=== PATIENT | male | born 1970 | race Caucasian/White ===

== ENCOUNTER 2022-02-05 00:14 | Emergency (ER) | payer SELFPAY ==
[2022-02-05 00:13] VITALS: BP 170/110; PULSE 84; RESP 18; TEMP 36.9; O2SAT 98; BMI 30.3
--- NOTE | 2022-02-05 00:20 | XR_ITS ---
PROCEDURE INFORMATION: Exam: XR Chest Exam date and time: 02/05/2022 12:35 AM Age: 51 years old Clinical indication: Other: Elevated blood pressure; Additional info: High BP TECHNIQUE: Imaging protocol: Radiologic exam of the chest. Views: 2 views. COMPARISON: No relevant prior studies available. FINDINGS: Lungs: There is a 10 mm nodule left lower lobe. The remainder of the lungs are clear. Pleural spaces: Unremarkable. No pleural effusion. No pneumothorax. Heart/Mediastinum: Unremarkable. No cardiomegaly. Bones/joints: Unremarkable. IMPRESSION: 1. No acute finding. 2. 10 mm nodule left lower lobe.
--- NOTE | 2022-02-05 00:21 | ECG_ITS ---
APPROVED REPORT Exam: Resting ECG HR:74 bpm ECG Measurements Heart Rate 74 AXES NE 179 P 48 QRSd 93 QRS 42 QT 364 T 38 QTc 391 Conclusion SINUS RHYTHM NORMAL ECG UNCONFIRMED REPORT Electronically signed by : Josue White MD 02/06/2022 21:28:45
[2022-02-05 00:27] VITALS: BP 168/116; PULSE 77; O2SAT 95
[2022-02-05 00:27] LABS: Basophils # 0.1 K/mm3 (0-0.2); Basophils % 1.2 % (0.1-2.0); Eosinophils # 0.4 K/mm3 (0.0-0.4); Eosinophils % 4.2 % (0.1-12.0); Hematocrit 44.2 % (42.0-52.0); Hemoglobin 14.2 g/dL (14.1-18.0); Lymphocytes # 3.7 K/mm3 (0.7-4.5); Mean Corpuscular HGB Conc 32.2 g/dL (31.8-35.4); Mean Corpuscular Hemoglobin 28.8 pg (27.0-31.2); Mean Corpuscular Volume 89.5 fl (80-94); Mean Platelet Volume 9.2 fl (7.4-10.4); Monocytes # 0.4 K/mm3 (0.1-1.0); Monocytes % 4.9 % (1.7-9.3); Neutrophils # 4.2 K/mm3 (1.8-7.8); Neutrophils % 47.7 % (37.0-80.0); Platelet Count 174 K/mm3 (142-424); Red Blood Count 4.94 M/mm3 (4.60-6.20); White Blood Count 8.8 K/mm3 (4.8-10.8)
[2022-02-05 00:31] LABS: Alanine Aminotransferase 95 U/L (12-78); Albumin Level 4.3 g/dl (3.5-5.0); Albumin/Globulin Ratio 1.5 (1.1-1.8); Alkaline Phosphatase 204 U/L (38-126); Anion Gap 12.9 mEq/L (5-15); Aspartate Amino Transferase 47 U/L (17-59); Bilirubin,Total 0.4 mg/dl (0.2-1.3); Blood Urea Nitrogen 17 mg/dl (9-20); Calcium 9.5 mg/dl (8.4-10.2); Carbon Dioxide 25 mmol/L (22.0-30.0); Chloride 101 mmol/L (98-107); Creatinine Clearance Estimated 72 mL/min (50-200); Estimated Glomerular Filt Rate 78 ml/min (>60); GFR (African American) 95 ML/MIN (>60); Globulin 2.9 g/dL (1.3-3.2); Potassium 3.9 mmoL/L (3.5-5.1); Sodium 135 mmol/L (136-145); Total Protein,Serum 7.2 g/dl (6.3-8.2)
[2022-02-05 00:32] LABS: Coronavirus 19, PCR Not Detected (NotDetected); Influenza A, PCR Not Detected (NotDetected); Influenza B, PCR Not Detected (NotDetected)
[2022-02-05 00:36] LABS: C-Reactive Protein 7.3 mg/L (0-4); Glucose 427 mg/dl (74-100)
--- NOTE | 2022-02-05 00:41 | CT_ITS ---
PROCEDURE INFORMATION: Exam: CT Head Without Contrast Exam date and time: 02/05/2022 12:42 AM Age: 51 years old Clinical indication: Pain; Headache not specified; Additional info: AVILA elevated BP TECHNIQUE: Imaging protocol: Computed tomography of the head without contrast. Radiation optimization: All CT scans at this facility use at least one of these dose optimization techniques: automated exposure control; mA and/or kV adjustment per patient size (includes targeted exams where dose is matched to clinical indication); or iterative reconstruction. COMPARISON: No relevant prior studies available. FINDINGS: Brain: Normal. No hemorrhage. Unremarkable white matter. No mass effect. Cerebral ventricles: No ventriculomegaly. Ventricles are asymmetric, left larger than right, a finding within normal limits. Paranasal sinuses: There is opacification of the right frontal sinus with hyperostosis of the right frontal sinus dorman. There is mucosal thickening of the left sphenoid sinus. Mastoid air cells: Visualized mastoid air cells are well aerated. Bones/joints: Unremarkable. No acute fracture. Soft tissues: Unremarkable. IMPRESSION: 1. No acute intracranial abnormality. 2. Chronic sinusitis.
[2022-02-05 00:50] LABS: Procalcitonin 0.134 ng/mL (0.0-2.0)
[2022-02-05 00:53] VITALS: BP 171/119; PULSE 86; O2SAT 96
[2022-02-05 00:54] LABS: Troponin I < 0.01 ng/ml (0.00-0.034)
--- NOTE | 2022-02-05 00:56 | PC.NURSE ---
Rounded on patient. Pt is resting in bed with daughter at bedside. PT given a 0.1mg clonidine po per md order for hypertension. Pt states that he wasnt aware that he has any issues with his blood glucose levels but has been seen at [place] for his hypertension several times but has not had changes made to his treatment by his MD. Pt was given a warm blanket and a remote control for his television. Advised patient that we're continuing to wait for the results of his testing. Call silva provided to patient.
[2022-02-05 00:57] VITALS: BP 160/112; PULSE 82; O2SAT 95
[2022-02-05 00:59] LABS: Erythrocyte Sedimentation Rate 14 mm/hr (0-20)
[2022-02-05 01:00] LABS: Acetone, Serum (Rapid) None Detected (None Detect)
--- NOTE | 2022-02-05 01:11 | HMH.EDWEAK ---
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 status Diabetes mellitus complication status: with other specified complication Qualified Code(s): E11.69 - Type 2 diabetes mellitus with other specified complication Disposition: Home, Self-Care Condition on Discharge: Good Instructions: Treatments for High Blood Pressure: More Than Just Taking a Pill Additional Instructions: call pcp this am Prescriptions: Metformin HCl [Metformin HCl ER] 500 mg PO BID #60 tab Transmission Status: Pending to [facility] Referrals: Provider,Referral, [Primary Care Provider] - - Critical Care Critical Care Time: No Attestation: On 02/05/22, the high probability of a clinically significant, sudden or life threatening deterioration of the following system(s) required my full and direct attention, intervention and personal management. The time I documented below is in addition to time spent performing reported procedures but includes the following listed in this critical care notation. Medical Decision Making - Medical Records Medical records reviewed: Yes: I reviewed the patient's medical records. - Anthony Inquiry Pt receiving controlled substance: No Vital Signs: 02/05/22 00:13 02/05/22 00:27 02/05/22 00:53 Temperature 98.5 F Temperature Source Oral Pulse Rate 77 86 Pulse Rate [Right] 84 Respiratory Rate 18 Blood Pressure 168/116 H 171/119 H Blood Pressure [Right Arm] 170/110 H Blood Pressure Mean [Right Arm] 130 02 Sat by Pulse Oximetry 98 95 96 Oxygen Delivery Method Room Air Room Air 02/05/22 00:57 Temperature Temperature Source Pulse Rate 82 Pulse Rate [Right] Respiratory Rate Blood Pressure 160/112 H Blood Pressure [Right Arm] Blood Pressure Mean [Right Arm] 02 Sat by Pulse Oximetry 95 Oxygen Delivery Method Room Air - Lab Data Lab results reviewed: Yes: I reviewed the patient's lab results. Lab Results 02/05/22 00:15: WBC 8.8, RBC 4.94, Hgb 14.2, Hct 44.2, MCV 89.5, MCH 28.8, MCHC 32.2, RDW 14.0, Plt Count 174, MPV 9.2, Neut % (Auto) 47.7, Lymph % (Auto) 42.0, [place] % (Auto) 4.9, Eos % (Auto) 4.2, Baso % (Auto) 1.2, Neut # (Auto) 4.2, Lymph # (Auto) 3.7, [place] # (Auto) 0.4, Eos # (Auto) 0.4, Baso # (Auto) 0.1, ESR 14 02/05/22 00:15: Sodium 135 L, Potassium 3.9, Chloride 101, Carbon Dioxide 25, Anion Gap 12.9, BUN 17, Creatinine 1.00, Estimated Creat Clear 72, Estimated GFR 78, Est GFR ( Amer) 95, Glucose 427 H*, Calcium 9.5, Total Bilirubin 0.4, AST 47, ALT 95 H, Alkaline Phosphatase 204 H, Troponin I < 0.01, C-Reactive Protein 7.3 H, Total Protein 7.2, Albumin 4.3, Globulin 2.9, Albumin/Globulin Ratio 1.5, Procalcitonin 0.134 02/05/22 00:15: Hemoglobin A1c 8.7 H 02/05/22 00:15: Acetone Level None detected 02/05/22 00:23: SARS-CoV-2 (PCR) Not detected, Influenza A Untype (PCR) Not detected, Influenza Type B (PCR) Not detected 02/05/22 01:27: Urine Color Yellow, Urine Appearance Clear, Urine pH 6.0, Ur Specific [place] 1.015, Urine Protein Negative, Urine Glucose (UA) 3+, Urine Ketones Negative, Urine Blood Negative, Urine Nitrate Negative, Urine Bilirubin Negative, Urine Urobilinogen 0.2, Ur Leukocyte Esterase Negative, Ur Squamous Epith Cells Occasional Result diagrams: 02/05/22 00:15 02/05/22 00:15 Orders (Tests/Meds): ED MEDICATIONS Discontinued Medications Generic Name Dose Route Start Last Admin Trade Name Ariana PRN Reason Stop Dose Admin Clonidine HCl 0.1 mg 02/05/22 00:42 02/05/22 00:51 Clonidine 0.1mg Tablet PO 02/05/22 00:43 0.1 mg ONCE ONE Administration Insulin Human Regular 5 unit 02/05/22 01:19 02/05/22 01:22 Insulin Human Regular 100 Units/Ml 10ml Vial IVP 02/05/22 01:20 5 unit ONCE ONE Administration ORDERS Category Date Time Status Troponin I Q3H Lab 02/05/22 03:
--- NOTE | 2022-02-05 01:27 | PC.NURSE ---
Educated patient on diabetes and preventative measures that he can take to reduce his blood glucose levels, such as diet and exercise and following a low carb diet at home. Explained to patient that we continue to wait on his results but if discharged he should follow up with his pcp for changes needed for his blood glucose. Patient verbalized understanding .He states that he stays active with his work, but feels like there's room for improvement on his diet.
[2022-02-05 01:40] LABS: Hemoglobin A1C 8.7 % (4.0-6.0)
[2022-02-05 01:42] LABS: Microscopic, Urine URINE MICROSCOPIC (MICROSCOPIC)
[2022-02-05 01:43] LABS: Appearance,Urine CLEAR (Clear); Bilirubin,Urine Negative (Negative); Blood, Urine Negative (Negative); Color,Urine YELLOW (Yellow); Glucose,Urine (UA) 3+ (Negative); Ketones,Urine Negative (Negative); Leukocyte Esterase,Urine Negative (Negative); Nitrate,Urine Negative (Negative); Protein,Urine Negative (Negative); Specific Gravity, Urine 1.015 (1.005-1.030); Urobilinogen,Urine 0.2 EU/dl (0.2)
[2022-02-05 01:46] LABS: Squamous Epithelial Cell,Urine Occasional #/hpf (0-5)
[2022-02-05 01:54] VITALS: BP 149/103; PULSE 91; RESP 18; TEMP 36.6; O2SAT 95
== END 2022-02-05 02:02 | disposition home or self-care (01) ==
PROVIDERS: Emergency Provider Emergency Medicine
DX: E11.69 Type 2 diabetes mellitus with other specified complication (principal); R03.0 Elevated blood-pressure reading, without diagnosis of hypertension; R53.1 Weakness; R51.9 Headache, unspecified; Z79.84 Long term (current) use of oral hypoglycemic drugs; Z20.822 Contact with and (suspected) exposure to COVID-19
CPT/HCPCS: 70450; 71046; 80053; 81001; 82009; 83036; 84145; 84484; 85025; 85651; 86140; 93005; 96374; 99285; C9803; U0003; U0005

== ENCOUNTER 2022-10-10 19:59 | Emergency (ER) | payer SELFPAY ==
[2022-10-10 20:33] VITALS: BP 152/93; PULSE 83; RESP 18; TEMP 36.7; O2SAT 97; BMI 29.4
--- NOTE | 2022-10-10 20:36 | XR_ITS ---
PROCEDURE INFORMATION: Exam: XR Right Hand Exam date and time: 10/10/2022 8:34 PM Age: 52 years old Clinical indication: Right; Patient HX: Injured hand working on car, pain radiates to elbow; Additional info: Injury TECHNIQUE: Imaging protocol: Radiologic exam of the right hand. Views: 3 or more views. Total images: 3 COMPARISON: No relevant prior studies available. FINDINGS: Bones/joints: No acute fracture or joint dislocation. Joint spaces are well maintained and age-appropriate. No significant degenerative arthropathy. No concerning bone lesions or calcifications. Soft tissues: Unremarkable soft tissues. IMPRESSION: Negative right hand.
--- NOTE | 2022-10-10 20:36 | XR_ITS ---
PROCEDURE INFORMATION: Exam: XR Right Elbow Exam date and time: 10/10/2022 8:38 PM Age: 52 years old Clinical indication: Right; Patient HX: Injured hand working on car, pain radiates to elbow; Additional info: Injury TECHNIQUE: Imaging protocol: Radiologic exam of the right elbow. Views: 1 or 2 views. Total images: 2 COMPARISON: CR XR WRIST RT MIN 3V 10/10/2022 8:36 PM FINDINGS: Bones/joints: No acute fracture, joint dislocation, or joint effusion. Joint spaces are well maintained. No degenerative arthropathy. No concerning bone lesions. Soft tissues: Unremarkable soft tissues. IMPRESSION: Negative right elbow.
--- NOTE | 2022-10-10 20:36 | XR_ITS ---
PROCEDURE INFORMATION: Exam: XR Right Forearm Exam date and time: 10/10/2022 8:38 PM Age: 52 years old Clinical indication: Lower or forearm; Right; Patient HX: Injured hand working on car, pain radiates to elbow; Additional info: Injury TECHNIQUE: Imaging protocol: Radiologic exam of the right forearm. Views: 2 views. Total images: 2 COMPARISON: CR XR WRIST RT MIN 3V 10/10/2022 8:36 PM FINDINGS: Bones/joints: No acute fracture or joint dislocation. Proximal and distal articulations are maintained. Corticated ossicle tip of the ulnar styloid process. No concerning bone lesions. Soft tissues: Unremarkable soft tissues. IMPRESSION: Negative right forearm.
--- NOTE | 2022-10-10 20:36 | XR_ITS ---
PROCEDURE INFORMATION: Exam: XR Right Wrist Exam date and time: 10/10/2022 8:36 PM Age: 52 years old Clinical indication: Wrist; Right; Patient HX: Injured hand working on car, pain radiates to elbow; Additional info: Injury TECHNIQUE: Imaging protocol: Radiologic exam of the right wrist. Views: 3 or more views. Total images: 3 COMPARISON: CR XR HAND RT MIN 3V 10/10/2022 8:34 PM FINDINGS: Bones/joints: No acute fracture or joint dislocation. Carpal alignment is well maintained. Mild degenerative change 1st carpometacarpal joint with adjacent accessory ossicle. Corticated ossicle tip of the ulnar styloid process. Distal radius and ulna are intact. Soft tissues: Unremarkable soft tissues. IMPRESSION: Negative right wrist.
--- NOTE | 2022-10-10 21:24 | PC.NURSE ---
Pt states he was working on his transmission in his truck this evening at 1800 when he removed transmission it smashed his right hand. Pt complains of right thumb, index finger and elbow pain 10/10 with movement. Xray complete.
--- NOTE | 2022-10-10 21:57 | HMH.EDUPEXT ---
Discharge Plan Disposition Chief Complaint: Extremity Injury, Upper Prescriptions Prescriptions: No Action metformin 500 MG tablet extended release 24 hr 500 mg PO BID Qty: 60 0RF Referrals Follow up/Referrals: Gwen Joe [Primary Care Provider] - See instructions Clinical Impressions Clinical Impression: Injury of wrist, Hand injury Instructions Patient Instructions: DI for Hand Injury Discharge ED Provider: Arvind (ED)Antonio Upper Extremity HPI General Chief Complaint: Extremity Injury, Upper Stated Complaint: AO 10/10@1745 @HOME INJURED R HAND Time Seen by Provider: 10/10/22 21:57 Mode of Arrival: Ambulatory Source of Information: Patient, Spouse and Medical Record Limitations: No Limitations Description of Symptoms (Recalled from ER Triage Doc. by RN): Pt c/o right arm pain from elbow to his thumb while working on a vehicle. No lacerations or skin openings. Pt says it's painful to move the right arm. History of Present Illness HPI narrative: acute injury rt upper ext tonight at home as transmission dropped on wrist MD complaint: injury to: right, forearm, wrist and hand Onset (ago): hour(s) Other Extremity Injury: Right: hand, wrist and forearm Other injuries: none Handedness: right Place: home Severity: moderate Context: direct blow Associated symptoms: denies other symptoms Related Data Previous Rx's Medication Instructions Recorded metformin 500 mg tablet,extended 500 mg PO BID #60 tabs 02/05/22 release 24 hr Allergies Allergy/AdvReac Type Severity Reaction Status Date / Time No Known Allergies Allergy Verified 02/05/22 00:18 [facility] Disclaimer: The information contained in this section may have been updated after the patient was seen, as this information can be updated by other users. Social History Smoking Status: Never smoker alcohol intake: never current occupational status: employed Travel in the last 8 weeks: None ROS Obtained: Yes All systems reviewed & no additional complaints except as documented Physical Exam General General appearance: alert Head Head exam: normocephalic Eye Eye exam: Present PERRL and EOMI ENT ENT exam: Present mucous membranes moist Neck Neck exam: Present trachea midline Respiratory Respiratory exam: Absent respiratory distress Cardiovascular Cardiovascular exam: Present regular rate Expanded Upper Extremity Exam Right: Forearm/Wrist exam: Present tenderness and swelling; Absent full ROM or tenderness over anatomical snuff box Hand exam: Present tenderness and swelling; Absent full ROM, amputation or subungual hematoma Neuromotor exam: Normal wrist extension Vascular exam: Normal radial pulse Neurological Exam Neurological exam: Present alert, oriented X3 and CN II-XII intact; Absent motor sensory deficit Psychiatric Psychiatric exam: Present normal affect Skin Skin exam: Absent rash Medical Decision Making Medical Records Medical records reviewed: Yes I reviewed the patient's medical records. Anthony Inquiry Pt receiving controlled substance: No Vital Signs: 10/10/22 20:33 Temperature 98.1 F Temperature Source Oral Pulse Rate [Apical] 83 Respiratory Rate 18 Blood Pressure [Right Arm] 152/93 H Blood Pressure Mean [Right Arm] 112 Blood Pressure Source [Right Arm] Automatic Cuff Blood Pressure Position [Right Arm] Sitting 02 Sat by Pulse Oximetry 97 Oxygen Delivery Method Room Air Lab Data Lab results reviewed: Yes I reviewed the patient's lab results. Orders (Tests/Meds): ORDERS Category Date Time Status Hand XR right minimum 3 views [XR hand RT min 3V] Stat Exams 10/10/22 20:36 Completed XR elbow RT 2V Stat Exams 10/10/22 20:36 Completed XR forearm RT 2V Stat Exams 10/10/22 20:36 Completed XR wrist RT min 3V Stat Exams 10/10/22 20:36 Completed Radiology Data #1: Image(s): Elbow, Forearm, Wrist and Hand Image Reviewed: Yes I have review
[2022-10-10 23:03] VITALS: BP 142/84; PULSE 84; RESP 18; TEMP 37.1
== END 2022-10-10 23:05 | disposition home or self-care (01) ==
LOC: ER 20:39
PROVIDERS: Emergency Provider Emergency Medicine; PCP Student in an Organized Health Care Education/Training Program
DX: S69.91XA Unspecified injury of right wrist, hand and finger(s), initial encounter (principal); W20.8XXA Other cause of strike by thrown, projected or falling object, initial encounter
CPT/HCPCS: 29125; 73070; 73090; 73110; 73130; 99284